=== PATIENT | female | born 1980 | race Caucasian/White ===

== ENCOUNTER 2017-07-13 08:59 | Inpatient (IN) | payer MEDICAID ==
[~2017-07-13] VITALS: Ht 162.6 cm; Wt 75.3 kg
[2017-07-13] MEDS ORDERED: LACTATED RINGER'S 1,000 ML IV PRN (09:50)
[2017-07-13 09:55] VITALS: BMI 28.5
[2017-07-13 09:56] VITALS: Ht 162.6 cm; Wt 75.3 kg
[2017-07-13 09:57] VITALS: BP 106/60; PULSE 54; RESP 20
[2017-07-13] MEDS ORDERED: LIDOCAINE 1% (MPF) 30 ML INJ INJ PRN (10:00)
[2017-07-13] MEDS ORDERED: CARBOPROST 250 MCG INJ IM PRN ×2 (10:00→17:30)
[2017-07-13] MEDS ORDERED: BUTORPHANOL 2 MG INJ IV PRN (10:00)
[2017-07-13] MEDS ORDERED: MISOPROSTOL 200 MCG TAB PR PRN ×2 (10:00→17:30)
[2017-07-13] MEDS ORDERED: OXYTOCIN 30 UNITS/LR 500 ML IV SCH ×2 (10:00)
[2017-07-13] MEDS ORDERED: METHYLERGONOVINE 0.2 MG INJ IM PRN ×2 (10:00→17:30)
[2017-07-13] MEDS ORDERED: OXYTOCIN 30 UNITS/LR 500 ML IV PRN ×2 (10:00→17:30)
[2017-07-13] MEDS ORDERED: IBUPROFEN 600 MG TAB PO PRN (10:00)
[2017-07-13] MEDS: LACTATED RINGER'S 1,000 ML IV SCH ×2 (10:24→19:57)
[2017-07-13 10:25] LABS: BASOPHILS % 0.3 % (0.0-2.0); EOSINOPHILS % 0.4 % (0.0-7.0); HEMATOCRIT 34.3 % (37.0-47.0); HEMOGLOBIN 10.9 g/dl (12.0-16.0); LYMPHOCYTES % 19.6 % (15.0-51.0); MEAN CORPUSCULAR HEMOGLOBIN 25.6 pg (29.0-33.0); MEAN CORPUSCULAR HGB CONC 31.8 g/dl (32.0-37.0); MEAN CORPUSCULAR VOLUME 80.5 fl (82.0-101.0); MEAN PLATELET VOLUME 12.9 fl (7.4-10.4); MONOCYTE # 0.7 10^3/ul (0.3-0.9); MONOCYTES % 6.6 % (0.0-11.0); NEUTROPHIL # 7.4 10^3/ul (1.6-7.5); NEUTROPHILS % 72.6 % (39.0-77.0); PLATELET COUNT 202 10^3/UL (140-415); RED BLOOD COUNT 4.26 10^6/ul (4.20-5.40); RED CELL DISTRIBUTION WIDTH 16.3 % (11.5-14.5); WHITE BLOOD COUNT 10.2 10^3/ul (4.8-10.8)
[2017-07-13 11:09] LABS: INR 0.88; PROTIME 11.9 Sec (12.2-14.2); PT RATIO 0.9
[2017-07-13 11:10] LABS: PARTIAL THROMBOPLASTIN TIME 28.9 Sec (25.0-35.0)
[2017-07-13] MEDS ORDERED: LACTATED RINGER'S 1,000 ML IV ONE (12:11)
[2017-07-13] MEDS ORDERED: CITRIC ACID/NA CITRATE 30 ML CUP ONE (12:13)
[2017-07-13] MEDS ORDERED: ONDANSETRON 4 MG INJ ONE (12:13)
[2017-07-13] MEDS ORDERED: FENTAnyl 2MCG/ML-ROPIV 0.2% 100 ML ONE (12:15)
[2017-07-13] MEDS ORDERED: morphine 4 MG/ML VIAL IV PRN (12:30)
[2017-07-13] MEDS ORDERED: NALOXONE (0.4 MG/ML) INJ IV PRN (12:30)
[2017-07-13] MEDS ORDERED: KETOROLAC 30 MG INJ IV PRN (12:30)
[2017-07-13] MEDS ORDERED: NALBUPHINE HCL (10 MG/1 ML) INJ IV PRN (12:30)
[2017-07-13] MEDS ORDERED: ONDANSETRON 4 MG INJ IV ONE (12:30)
[2017-07-13] MEDS ORDERED: DIPHENHYDRAMINE 50 MG INJ IV PRN (12:30)
[2017-07-13] MEDS ORDERED: FENTAnyl 2MCG/ML-ROPIV 0.2% 100 ML BAG EPI SCH (12:30)
[2017-07-13] MEDS ORDERED: morphine 2 MG INJ IV PRN (12:30)
[2017-07-13] MEDS ORDERED: CITRIC ACID/NA CITRATE 30 ML CUP PO ONE (12:30)
[2017-07-13] MEDS ORDERED: ONDANSETRON 4 MG INJ IV PRN ×2 (12:30→17:30)
[2017-07-13] MEDS ORDERED: TRIMETHOBENZAMIDE 100 MG/ML VIAL IM PRN (12:30)
[2017-07-13] MEDS ORDERED: MISOPROSTOL 100 MCG TAB VAG SCH (15:00)
--- NOTE | 2017-07-13 17:02 | TRIAGE ---
OB Triage Datetime Report Generated by CPN: 07/13/2017 17:01 Datetime: 07/13/2017 16:22 Vaginal Exam Dilatation (cms): 10.0 Effacement (%): 100 Station: -1 Datetime: 07/13/2017 15:46 Labor Evaluation Frequency: 2-4 Monitor Mode: External Duration (sec)2399: 50-80 Quality: Moderate Pattern: Normal: <= 5 Contractions in 10 Minutes Resting Tone [place]: Relaxed Heart Rate FHR Baseline Rate: 135 Monitor Mode: External US FHR Baseline Changes: No Baseline Change Variability: Moderate 6-25 bpm Accelerations: 15X15 Decelerations: Early Category: Category I Pain Presence: None/Denies Datetime: 07/13/2017 15:11 Labor Evaluation Frequency: 2-4 Monitor Mode: External Duration (sec)2399: 60-80 Quality: Moderate Pattern: Normal: <= 5 Contractions in 10 Minutes Resting Tone [place]: Relaxed Heart Rate FHR Baseline Rate: 135 Monitor Mode: External US FHR Baseline Changes: No Baseline Change Variability: Moderate 6-25 bpm Accelerations: 15X15 Decelerations: Early Category: Category I Pain Presence: None/Denies Datetime: 07/13/2017 15:00 Vaginal Exam Dilatation (cms): 9.0 Effacement (%): 100 Station: -1 Datetime: 07/13/2017 14:39 Labor Evaluation Frequency: 2-4 Monitor Mode: External Duration (sec)2399: 60-80 Quality: Moderate Pattern: Normal: <= 5 Contractions in 10 Minutes Resting Tone [place]: Relaxed Heart Rate FHR Baseline Rate: 135 Monitor Mode: External US FHR Baseline Changes: No Baseline Change Variability: Moderate 6-25 bpm Accelerations: 15X15 Decelerations: None Category: Category I Pain Presence: None/Denies Datetime: 07/13/2017 13:52 Vaginal Exam Dilatation (cms): 6.0 Effacement (%): 80 Station: -2 Datetime: 07/13/2017 13:46 Labor Evaluation Frequency: 2-4 Monitor Mode: External Duration (sec)2399: 50-80 Quality: Mild Pattern: Normal: <= 5 Contractions in 10 Minutes Resting Tone [place]: Relaxed Heart Rate FHR Baseline Rate: 135 Monitor Mode: External US FHR Baseline Changes: No Baseline Change Variability: Moderate 6-25 bpm Accelerations: 15X15 Decelerations: None Category: Category I Pain Presence: None/Denies Datetime: 07/13/2017 13:15 Labor Evaluation Frequency: 2-4 Monitor Mode: External Duration (sec)2399: 50-80 Quality: Moderate Pattern: Normal: <= 5 Contractions in 10 Minutes Resting Tone [place]: Relaxed Heart Rate FHR Baseline Rate: 130 Monitor Mode: External US FHR Baseline Changes: No Baseline Change Variability: Moderate 6-25 bpm Accelerations: 15X15 Decelerations: None Category: Category I Pain Presence: None/Denies Datetime: 07/13/2017 12:43 Labor Evaluation Frequency: 1-3 Monitor Mode: External Duration (sec)2399: 50-80 Quality: Strong Pattern: Normal: <= 5 Contractions in 10 Minutes Resting Tone [place]: Relaxed Heart Rate FHR Baseline Rate: 140 Monitor Mode: External US FHR Baseline Changes: No Baseline Change Variability: Moderate 6-25 bpm Accelerations: 15X15 Decelerations: None Category: Category I Pain Presence: None/Denies Datetime: 07/13/2017 12:42 Vaginal Exam Dilatation (cms): 5.0 Effacement (%): 80 Station: -2 Datetime: 07/13/2017 11:58 Labor Evaluation Frequency: 2-4 Monitor Mode: External Duration (sec)2399: 50-80 Quality: Moderate Pattern: Normal: <= 5 Contractions in 10 Minutes Resting Tone [place]: Relaxed Heart Rate FHR Baseline Rate: 135 Monitor Mode: External US FHR Baseline Changes: No Baseline Change Variability: Moderate 6-25 bpm Accelerations: 15X15 Decelerations: None Category: Category I Pain Assessment Pain Scale: 5 Pain Presence: Intermittent Pain Type: Cramping Pain Location: Abdomen Pain Relief Measures: Comfort Measures Pain Assessment Comments: WAITING FOR ANESTHESIOLOGIST TO FINISH C/SEC Datetime: 07/13/2017 11:51 Vaginal Exam Dilatation (cms): 3.0 Effacement (%): 80 Station: -2 Datetime: 07/13/2017 11:28 Labor Evaluation Frequency: 2-4 Monitor Mode: External Duration (sec)2399: 50-80 Quality: Moderate Pattern: Normal: <= 5 Contractions in 10 Minutes Resting Tone [place]: Relaxed Heart Rate FHR Baseline Rate: 145 Monitor Mode: External US FHR Baseline Changes: No Baseline Change Variability: Moderate 6-25 bpm Accelerations: 15X15 Decelerations: None Category: Category I Pain Assessment Pain Scale: 5 Pain Presence: Intermittent Pain Type: Cramping Pain Location: Abdomen Pain Relief Measures: Comfort Measures Datetime: 07/13/2017 10:58 Labor Evaluation Frequency: 2-4 Monitor Mode: External Duration (sec)2399: 50-80 Quality: Moderate Pattern: Normal: <= 5 Contractions in 10 Minutes Resting Tone [place]: Relaxed Heart Rate FHR Baseline Rate: 140 Monitor Mode: External US FHR Baseline Changes: No Baseline Change Variability: Moderate 6-25 bpm Accelerations: 15X15 Decelerations: None Category: Category I Pain Assessment Pain Scale: 5 Pain Presence: Intermittent Pain Type: Cramping Pain Location: Abdomen Pain Relief Measures: Comfort Measures Datetime: 07/13/2017 10:09 Vaginal Exam Dilatation (cms): 3.0 Effacement (%): 80 Station: -2 Membrane Status: Ruptured Membranes Rupture Method: Artificial Amniotic Fluid Color: Clear Amniotic Fluid Amount: Small Amniotic Fluid Odor: None Datetime: 07/13/2017 09:41 Stage of : Labor Assessment Type: Admission Assessment Vaginal Bleeding: None Maternal Assessment Level of Consciousness: Fully Conscious DTR's/Clonus: DTRs 2+; No Clonus Headache: Denies Blurred Vision: No Respiratory Effort: Unlabored; Regular Rhythm; Equal Expansion Breath Sounds, Left: Clear and Equal Breath Sounds, Right: Clear and Equal Nausea/Vomiting: Denies RUQ Epigastric Pain: Denies Facial Edema: None Fall Risk Assessment History of Falling: (0) No Secondary Diagnosis: (0) No Ambulatory Aid: (0) Bedrest/Nurse Assist IV Therapy: (0) No Gait: (0) Normal/Bedrest/Immobile Mental Status: (0) Oriented to Own Ability Fall Score: 0 Fall Risk Score Definition: No Risk: No action required Labor Evaluation Frequency: 2-4 Monitor Mode: External Duration (sec)1179: 50-80 Quality: Mild Pattern: Normal: <= 5 Contractions in 10 Minutes Resting Tone [place]: Relaxed Heart Rate FHR Baseline Rate: 135 Monitor Mode: External US FHR Baseline Changes: No Baseline Change Variability: Moderate 6-25 bpm Accelerations: 15X15 Decelerations: None Category: Category I Pain Assessment Pain Scale: 3 Pain Presence: Intermittent Pain Type: Cramping Pain Location: Abdomen Pain Relief Measures: Comfort Measures Datetime: 07/13/2017 09:11 Stage of : OB Triage Assessment Type: Triage Maternal Assessment Level of Consciousness: Fully Conscious DTR's/Clonus: DTRs 2+; No Clonus Headache: Denies Blurred Vision: No Respiratory Effort: Unlabored; Regular Rhythm; Equal Expansion Breath Sounds, Left: Clear and Equal Breath Sounds, Right: Clear and Equal Nausea/Vomiting: Denies RUQ Epigastric Pain: Denies Lower Extremities Edema: Bilateral Lower Extremities Degree: 1+ Upper Extremities Edema: None Degree: None Facial Edema: None Temperature Route: Axillary Fall Risk Assessment History of Falling: (0) No Secondary Diagnosis: (0) No Ambulatory Aid: (0) Bedrest/Nurse Assist IV Therapy: (0) No Gait: (0) Normal/Bedrest/Immobile Mental Status: (0) Oriented to Own Ability Fall Score: 0 Fall Risk Score Definition: No Risk: No action required Datetime: 07/13/2017 09:10 Time of Arrival: 07/13/2017 08:48 EGA: 39.0 Arrived By: Ambulatory Arrived From: Home Chief Complaint: UC'S SINCE 399 Movement: Present Contractions: Regular Contractions: 2-3 Rupture of Membranes: Denies Vaginal Bleeding: None Vaginal Discharge: Denies Recent Sexual Intercouse: Denies Abdominal Trauma: Not Applicable Patient Complaints: Contractions; Back Pain Time Provider Notified: 07/13/2017 09:15 Provider Notified: dr. bowen Initial Plan: SVE Membranes Ruptured Date/Time: 07/13/2017 10:09 Datetime: 07/13/2017 09:07 Vaginal Exam Dilatation (cms): 3.0 Effacement (%): 50 Station: -4 Exam By: PIYUSH GHOSH Cervix, Consistency: Soft Datetime: 07/13/2017 09:05 Pain Assessment Pain Scale: 5 Pain Presence: Intermittent Pain Type: Contraction Pain Location: Abdomen; Back; Perineum Pain Goal: 2 Pain Relief Measures: Comfort Measures
--- NOTE | 2017-07-13 17:28 | LDN ---
Date/Time of Note Date/Time of Note DATE: 07/13/17 TIME: 17:27 Delivery Summary Weeks of Gestation 39 Placenta Delivered: Spontaneously Meconium: none Episiotomy: No Laceration repair: 1st degree perineal laceration repair with 2-0 and 3-0 chromic Anesthesia type: Epidural Sponge & Needle done & correct: Yes All needle counts correct: Yes Any foreign bodies felt in the: No Problems: Infant Delivery Information Sex Infant Sex: female Apgars 1 Minute: 9 5 Minute: 9 Suctioning Nose & mouth suctioned at dina: No Delee suction performed: No Umbilical Cord Umbilical cord with: 3 Vessels Cord presentations: nuchal cord Nuchal cord present X: 1 Cord Blood was obtained: Yes MARISEL GUTIERREZ MD Jul 13, 2017 17:28
[2017-07-13] MEDS ORDERED: SENNA/DOCUSATE NA (8.6MG/50MG) TAB PO PRN (17:30)
[2017-07-13] MEDS ORDERED: OXYCODONE/ASPIRIN (4.88/325) TAB PO PRN ×2 (17:30)
[2017-07-13] MEDS ORDERED: DIBUCAINE 1% 30 GM OINT TOP PRN (17:30)
[2017-07-13] MEDS ORDERED: BENZOCAINE 20% 56 ML SPRAY TOP PRN (17:30)
[2017-07-13] MEDS ORDERED: ONDANSETRON 4 MG TAB PO PRN (17:30)
[2017-07-13] MEDS ORDERED: WITCH HAZEL/GLYCERIN PAD PR PRN (17:30)
--- NOTE | 2017-07-13 17:44 | PREOPHP ---
DATE OF ADMISSION: 07/13/2017 HISTORY OF PRESENT ILLNESS: Ms. Maddie Martin is a 36-year-old 4, para 3, EDC 07/20/2017, in trauterine at 39 weeks' gestational age, admitted today in labor. She denies any vaginal bleeding or discharge. Her contractions started this morning. Her care took place at [facility]. MEDICAL HISTORY: Anemia. MEDICATIONS: vitamins and iron. PAST SURGICAL HISTORY: None. OBSTETRIC HISTORY: x3 vaginal deliveries. GYNECOLOGIC HISTORY: 3 to 4 days. Denies any sexually transmitted diseases. Sexually active with 1 partner. SOCIAL HISTORY: Denies any smoking, drugs or alcohol. FAMILY HISTORY: None. REVIEW OF SYSTEMS: All normal except history of present illness. PHYSICAL EXAMINATION: HEENT: Within normal. LUNGS: CTA bilateral. CARDIOVASCULAR: S1, S2, regular rhythm. ABDOMEN: Gravid, nontender. Negative CVA bilateral. EXTREMITIES: Negative edema. No calf tenderness. PELVIC: Vaginal exam on admission: 2 to 3 cm dilated, 50% effaced, -2 station. heart tracin g category 1, toco regular contractions. ASSESSMENT: Intrauterine at term, in labor. PLAN: Expected vaginal delivery. Dictated By: MARISEL DACOSTA/PAOLA Conf#: [id number] DID#: [id number]
[2017-07-13] MEDS: IBUPROFEN 600 MG TAB PO SCH (20:17)
[2017-07-13 20:30] VITALS: BP 122/69; PULSE 58; RESP 18
[2017-07-13] MEDS: SENNA/DOCUSATE NA (8.6MG/50MG) TAB PO SCH (21:00)
[2017-07-13] MEDS: LANOLIN 7 GM TUBE TOP PRN (22:43)
[2017-07-13] MEDS: LACTATED RINGER'S 1,000 ML IV* SCH (22:43)
[2017-07-14 00:30] VITALS: BP 119/65; PULSE 82; RESP 18
[2017-07-14] MEDS: IBUPROFEN 600 MG TAB PO SCH ×5 (02:42→23:45)
[2017-07-14 04:00] VITALS: BP 96/66; PULSE 58; RESP 18
[2017-07-14 07:30] VITALS: BP 103/61; PULSE 59; RESP 20
[2017-07-14] MEDS: SENNA/DOCUSATE NA (8.6MG/50MG) TAB PO SCH ×2 (08:50→22:18)
[2017-07-14] MEDS: LACTATED RINGER'S 1,000 ML IV* SCH (08:51)
[2017-07-14 10:09] LABS: BASOPHILS % 0.3 % (0.0-2.0); EOSINOPHILS # 0.1 10^3/ul (0.0-0.5); EOSINOPHILS % 0.4 % (0.0-7.0); HEMATOCRIT 29.9 % (37.0-47.0); HEMOGLOBIN 9.5 g/dl (12.0-16.0); LYMPHOCYTES # 1.7 10^3/ul (0.8-2.9); LYMPHOCYTES % 12.4 % (15.0-51.0); MEAN CORPUSCULAR HEMOGLOBIN 25.5 pg (29.0-33.0); MEAN CORPUSCULAR HGB CONC 31.8 g/dl (32.0-37.0); MEAN CORPUSCULAR VOLUME 80.2 fl (82.0-101.0); MEAN PLATELET VOLUME 12.9 fl (7.4-10.4); MONOCYTE # 0.9 10^3/ul (0.3-0.9); MONOCYTES % 6.2 % (0.0-11.0); NEUTROPHILS % 80.3 % (39.0-77.0); PLATELET COUNT 175 10^3/UL (140-415); RED BLOOD COUNT 3.73 10^6/ul (4.20-5.40); RED CELL DISTRIBUTION WIDTH 16.5 % (11.5-14.5); WHITE BLOOD COUNT 13.7 10^3/ul (4.8-10.8)
[2017-07-14 12:00] VITALS: BP 107/68; PULSE 58; RESP 18
[2017-07-14 15:00] VITALS: BP 108/60; PULSE 59; RESP 16
[2017-07-14 20:15] VITALS: BP 112/59; PULSE 58; RESP 18
[2017-07-14] MEDS ORDERED: INFLUENZA VIRUS VACCINE 0.5 ML SYG IM* ONE (21:00)
--- NOTE | 2017-07-14 21:27 | PD.PPDC ---
ACCOUNTING POLICY CONSULTANT Discharge Instruction Condition Patient Condition: Good Diet Diet: Resume Regular Diet Activity/Restrictions Activity: Normal Activity May Shower Wound/Drain Care Instructions Wound/Drain Care Instructions: Wash with soap and water Keep clean and dry Return to clinic for INVENTORY TRANSCRIBER Instructions: Fever greater than 101 Chills Worsening abdominal pain Excessive Vaginal Bleeding More than 2 pads per hour Unable to tolerate diet OB Instructions: Breast Tenderness Depression Blurried Vision Headache Surgical Instructions: Incisional Drainage Incisional Redness MARISEL GUTIERREZ MD Jul 14, 2017 21:27
--- NOTE | 2017-07-14 21:29 | DS ---
Date/Time of Note Date/Time of Note DATE: 07/14/17 TIME: 21:28 Obstetrical Discharge Record Final Diagnosis Final Diagnosis: Term delivered Vaginal Delivery Obstetrical Delivery: Laceration, Repaired Condition on Discharge Physical Assessment Voiding: Yes Bowel Movement: Yes Breast: Soft, non-tender, Filling Fundus: Firm Calf Tenderness: No Patient Condition: Fair MARISEL GUTIERREZ MD Jul 14, 2017 21:29
[2017-07-14] MEDS: LANOLIN 7 GM TUBE TOP PRN (23:45)
[2017-07-15 04:10] VITALS: BP 109/60; PULSE 74; RESP 18
[2017-07-15] MEDS: IBUPROFEN 600 MG TAB PO SCH ×3 (05:39→17:13)
[2017-07-15 08:15] VITALS: BP 109/61; PULSE 59; RESP 18
[2017-07-15] MEDS: SENNA/DOCUSATE NA (8.6MG/50MG) TAB PO SCH (09:00)
== END 2017-07-15 18:35 | disposition home or self-care (01) | DRG 775 ==
LOC: L-D 08:59 → OBT 08:59 → L-D 09:15 → OBT 09:16 → L-D 09:24 → PP1 20:32
PROVIDERS: ADMIT Obstetrics & Gynecology; ATTEND Obstetrics & Gynecology
PROC: 10E0XZZ Delivery of Products of Conception, External Approach (ICD-10-PCS; principal; 2017-07-13)
PROC: 0HQ9XZZ Repair Perineum Skin, External Approach (ICD-10-PCS; 2017-07-13)
PROC: 4A1HXCZ Monitoring of Products of Conception, Cardiac Rate, External Approach (ICD-10-PCS; 2017-07-13)
PROC: 3E0234Z Introduction of Serum, Toxoid and Vaccine into Muscle, Percutaneous Approach (ICD-10-PCS; 2017-07-14)
DX: O70.0 First degree perineal laceration during delivery (principal); Z23 Encounter for immunization; Z37.0 Single live birth; Z3A.39 39 weeks gestation of pregnancy
CPT/HCPCS: 62319; 85025; 85610; 85730; 86592; 86703; 86900; 86901; 87340; 90686; A4310; G0463; J2405; J2590; J3010; J7120